=== PATIENT | female | born 1955 | race Caucasian/White ===

== ENCOUNTER 2016-12-08 14:30 | Emergency (ER) | payer SELFPAY ==
[2016-12-08] MEDS ORDERED: ASPIRIN 81 MG (BABY) CHEWABLE TABLET PO ONE (14:50)
[2016-12-08] MEDS ORDERED: Sodium Chloride 0.9% 1,000 ML PRIMARY IV ONE (14:50)
[2016-12-08] MEDS ORDERED: NORMAL SALINE 10 ML SYRINGE FLUSH IVP PRN (14:50)
[2016-12-08] MEDS ORDERED: KETOROLAC 30 MG/1 ML VIAL IVP ONE (14:50)
--- NOTE | 2016-12-08 14:53 | EKG ---
[address] [address] Measurements Intervals [place] Rate: 72 P: 43 NE: 131 QRS: 42 QRSD: 77 T: 23 QT: 388 QTc: 412 Interpretive Statements SINUS RHYTHM WITH OCCASIONAL SUPRAVENTRICULAR PREMATURE COMPLEXES No previous ECG available for comparison Electronically Signed On 12-09-16 13:15:39 MST by Nicolas Blakely [email or web address]
[2016-12-08 15:01] LABS: BASOPHILS # (AUTO) 0.04 10*3/UL; BASOPHILS % (AUTO) 0.5 % (0-1); EOSINOPHILS % (AUTO) 1.7 % (0-8); HEMATOCRIT 44.8 % (37.0-47.0); HEMOGLOBIN 15.8 g/dL (12.0-16.0); IMM GRAN % (AUTO) 0.1 % (0-5); IMM GRAN# (AUTO) 0.01 10*3/UL; LYMPHOCYTES # (AUTO) 2.02 10*3/uL; LYMPHOCYTES % (AUTO) 26.6 % (10-50); MEAN CORPUSCULAR HEMOGLOBIN 32.6 PG (27-31); MEAN CORPUSCULAR HGB CONC 35.3 g/dL (33-37); MEAN PLATELET VOLUME 10.1 FL (7.4-12.2); MONOCYTES # (AUTO) 0.72 10*3/UL (0.3-0.8); MONOCYTES % (AUTO) 9.5 % (5-15); NEUTROPHILS # (AUTO) 4.68 10*3/UL; NEUTROPHILS % (AUTO) 61.6 % (50-80); RDW COEFFICIENT OF VARIATION 13.1 % (11.5-14.5); RED BLOOD COUNT 4.84 10^6/uL (4.20-5.40)
--- NOTE | 2016-12-08 15:05 | PDOC ---
Chest Pain HPI - General Chief Complaint: Chest Pain Stated Complaint: CHEST PAIN, DIZZY Date Seen by Provider: 12/08/16 Time Seen by Provider: 14:35 Source: Patient Exam Limitations: POSITIVE: No limitations Treatment Prior to Arrival: REPORTS: None Nurse's Notes Reviewed & Considered: Yes - History of Present Illness Initial Comments: The patient is a 61-year-old female who presents to the emergency department with complaints of left-sided chest pain, left side pain and left hip pain. She is currently incarcerated. She states that for the past 2 days she has had a sharp pain in her left chest that radiates through to her back. She also has some pain in the left flank region. She has continued pain in the left hip after a fall over a month ago. She reports that she did have x-rays at that time that did not reveal any fracture. Her current chest pain is worse with taking a deep breath or coughing. She does report chronic dry cough. She does have a history of smoking. She has been incarcerated for approximately 5 days. She denies any known history of heart disease or blood clots. - Patient Home Medications Home Medications: Home Medications Acetaminophen [Tylenol] 1,000 mg PO Q6H PRN 12/08/16 Aspirin/Acetaminophen/Caffeine [Excedrin Migraine Tablet] 2 tab PO Q6H PRN 12/08 Azithromycin [Zithromax] 250 mg PO DAILY #4 tab 12/08/16 Azithromycin [Zithromax] 250 mg PO DAILY #4 tab 12/08/16 Clonazepam 1 mg PO BID 12/08/16 Cyclobenzaprine HCl 1 tab PO BEDTIME 12/08/16 Omeprazole 20 mg PO BID #30 cap 12/08/16 Omeprazole 20 mg PO BID #30 capsule. 12/08/16 Trazodone HCl 300 mg PO BEDTIME 12/08/16 - Patient Allergies Allergies/Adverse Reactions: Allergies Allergy/AdvReac Type Severity Reaction Status Date / Time egg Allergy RASH Verified 12/08/16 14:53 Sulfa (Sulfonamide Allergy RASH Verified 12/08/16 14:53 Antibiotics) Past Medical History Past Medical History Reviewed: Other (please comment) (She denies hypertension, diabetes, hyperlipidemia. She does have a history of smoking. She also has had previous lung cancer status post removal of the right upper lobe 2 years ago in [place].) ROS - Limitations ROS Limitations: No Limitations Constitution: DENIES: Chills, Fever Cardiovascular: REPORTS: Chest Pain. DENIES: Heart Racing, Heart Palpitations, Blood Pressure Problem, Edema Respiratory: REPORTS: Cough Non Productive, Hurts To Breathe Neurological: REPORTS: Confusion (She reports that she has been groggy for the past couple of days, she does admit that she was just started on clonazepam to help her with anxiety since she was incarcerated) Gastrointestinal: DENIES: Abdominal Pain, Nausea, Vomitting Genitourinary: REPORTS: Denies Symptoms, Flank Pain (Left side) Eyes: REPORTS: Denies Symptoms ENT: REPORTS: Denies Symptoms Skin: DENIES: Rash Chest Pain PE - General Appearance General Appearance: REPORTS: Alert, Cooperative, No Acute Distress - HEENT HEENT: POSITIVE: Head Inspection Nml, Eyes Inspection Nml, Ears Inspection Nml, Pharynx Inspect. Nml, PERRL, EOMI - Neck Neck: REPORTS: Normal Inspection. DENIES: Lymphadenopathy - Respiratory Respiratory: REPORTS: No Respiratory Distress, Breath Sounds Normal - Cardiovascular Cardiovascular: REPORTS: Regular Rate and Rhythm, Heart Sounds Normal - Abdomen Abdomen: Soft: (All Quadrants), Denies Tenderness: (All Quadrants), No Guarding : (All Quadrants), No Rebound: (All Quadrants), No Distention: (All Quadrants) - Skin Skin: REPORTS: Intact, No Rash - Extremities Extremity: Normal ROM: (All Extremities) Additional Extremities Details: Examination of the left hip does reveal extensive soft tissue swelling with palpable hematoma, bruising also noted in this region - Neurological / Psychological Neurological: POSITIVE: Oriented X3, Motor Normal, Sensation Normal Chest Pain Progress - Results Reviewed by me Xrays/CTs/US Reviewed by me: Yes Discussed with Radiologist: Yes Radiology Findings: Chest x-ray shows postsurgical changes in the right chest with no acute findings per radiologist. CT PE protocol is negative for PE, she does have thickening of the bronchial tubes as well as some airspace disease in the left lower lung, etiology is unclear possibly representing recurrent malignant process versus infection. She also has some thickening of the gastric wall. No other acute findings per radiologist. Lab Results Reviewed: Yes Lab Results:: Laboratory Results 12/08/16 12/08/16 Range/Units 14:45 15:45 WBC 7.60 (4.8-10.8) 10^3/uL RBC 4.84 (4.20-5.40) 10^6/uL Hgb 15.8 (12.0-16.0) g/dL Hct 44.8 (37.0-47.0) % MCV 92.6 (81-99) FL MCH 32.6 H (27-31) PG MCHC 35.3 (33-37) g/dL RDW Std Deviation 43.8 (39-50) fL RDW Coeff of Eduin 13.1 (11.5-14.5) % Plt Count 152 (140-350) 10*3/uL MPV 10.1 (7.4-12.2) FL Immature Gran % (Auto) 0.1 (0-5) % Neut % (Auto) 61.6 (50-80) % Lymph % (Auto) 26.6 (10-50) % Gregory % (Auto) 9.5 (5-15) % Eos % (Auto) 1.7 (0-8) % Baso % (Auto) 0.5 (0-1) % Immature Gran # (Auto) 0.01 10*3/UL Neut # (Auto) 4.68 10*3/UL Lymph # (Auto) 2.02 10*3/uL Gregory # (Auto) 0.72 (0.3-0.8) 10*3/UL Eos # (Auto) 0.13 10*3/UL Baso # (Auto) 0.04 10*3/UL WBC Morphology Comment Normal morphology (NORM) Plt Morphology Comment Normal morphology (NORM) RBC Morph Comment Normal morphology (NORM) D-Dimer 0.76 H (0.00-0.59) mg/L Sodium 138 (135-145) meq/L Potassium 3.9 (3.8-5.2) meq/L Chloride 102 (98-112) meq/L Carbon Dioxide 25 (23-33) meq/L Anion Gap 11 (5-20) BUN 15 (7-22) mg/dL Creatinine 0.7 (0.50-1.20) mg/dL Estimated GFR > 60 (>60 ml/min/1.73m(2)) BUN/Creatinine Ratio 21.42 H (6-20) Glucose 107 (78-110) mg/dL Calculated Osmolality 286.0 (267-292) mOsm/kg Calcium 9.7 (8.7-10.7) mg/dL Magnesium 1.8 (1.6-2.4) mg/dL Total Bilirubin 1.3 H (0.3-1.2) mg/dL AST 53 H (8-39) IU/L ALT 47 (9-52) IU/L Alkaline Phosphatase 90 (38-126) IU/L CK-MB (CK-2) 0.46 (0.00-5.00) NG/DL Troponin I < 0.012 (< 0.040) ng/mL Total Protein 7.3 (6.1-8.0) g/dL Albumin 4.2 (3.5-4.8) g/dL Globulin 3.1 (2.50-4.10) g/dL Albumin/Globulin Ratio 1.30 (1.3-2.0) mg/g Amylase 75 (30-110) U/L Lipase 40 (23-300) IU/L Ur Collection Type Clean catch urine Urine Color Yellow Urine Clarity Clear (CLEAR) Urine pH 5.5 (5.0-8.5) Ur Specific [place] 1.010 (1.005-1.030) Urine Protein Negative (NEG) mg/dl Urine Glucose (UA) Negative (NEG) mg/dL Urine Ketones Negative (NEG) Urine Occult Blood Negative (NEG) Urine Nitrate Negative (NEG) Urine Bilirubin Small (NEG) Urine Urobilinogen 1.0 (0.2) EU/dL Ur Leukocyte Esterase Negative (NEG) Ur Culture Indicated? Culture not set EKG Interpreted/Reviewed By Me:: Yes EKG Interpretation:: POSITIVE: Normal Sinus Rhythm, Normal Rate, Normal Intervals, Normal [place], Normal QRS, Normal ST/T - Patient's Progress MDM / ED Course: The patient is a 61-year-old female who presents to the emergency department with left-sided pleuritic chest pain. Her initial EKG does not reveal any acute ST segment or T-wave changes and is a normal sinus rhythm. She was given aspirin per chest pain protocol as well as Toradol 30 mg IV. Lab work was all essentially unremarkable except for a slightly elevated d-dimer. This d-dimer is likely elevated secondary to the hematoma on her left hip however given that she has left-sided pleuritic chest pain I did recommend that the patient undergo CTA to rule out PE. Initially she refused however after further discussion she agreed to have this test done. The CTA was negative for PE. It does show however some inflammatory changes in the bronchial tubes bilaterally in the perihilar regions as well as some airspace disease in the left lower lung. The etiology of this is unclear according to the radiologist he could not rule out recurrent malignant process and recommended follow-up. She does have cough and pleuritic pain. She is a smoker. 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 In addition next CT does show some evidence of gastritis and she was placed on a proton pump inhibitor. She is advised to take Tylenol as needed for pain. In addition some of her increased sleepiness is likely secondary to taking the combination of clonazepam and Flexeril. She will discontinue the Flexeril as she prefers to take the clonazepam. She is advised return to the emergency room if any worsening or change in symptoms. - Consult Counseled: POSITIVE: Patient, RE: Lab Results, RE: Radiology Results, RE: DX, RE : Need for F/U Patient Care Time - Estimated PCT Patient Care Time (In Minutes): 55 Vital Signs - Recent Vital Signs Vital Signs: Vital Signs (Last 8 hours) Temp Pulse Pulse Resp BP Pulse Ox 12/08/16 14:34 72 12/08/16 14:30 96.7 F L 65 17 137/91 92 - VS Reviewed Vital Signs Reviewed: Yes Discharge Clinical Impression: Pleurisy, Gastritis, Bronchitis, Hematoma of left hip Condition: Stable Prescriptions / Orders: Omeprazole 20 mg PO BID #30 cap Omeprazole 20 mg PO BID #30 anahi. Azithromycin [Zithromax] 250 mg PO DAILY #4 tab Azithromycin [Zithromax] 250 mg PO DAILY #4 tab Patient Instructions Given at Discharge: Pleurisy (ED), Gastritis (ED), Acute Bronchitis (ED), Hematoma (ED) Additional Instructions: Your EKG and blood tests did not reveal any evidence of heart problems causing her current chest pain. The CAT scan did not show any evidence of blood clot. There was however evidence of inflammation in the bronchial tubes as well as in the left lower part of the lung. This is likely causing some degree of pleurisy which is inflammation of the lining of the lung causing your sharp left -sided chest pain. This could be caused by infection (bronchitis/pneumonia) however the radiologist could not rule out reoccurrence of lung cancer as a potential cause. He will be treated with antibiotics and should follow-up with an oncologist/coin purse framer for reevaluation. Also on the CAT scan there was evidence of inflammation in the stomach wall likely representing gastritis or ulcer. For treatment of the bronchitis she will be started on Zithromax 500 mg today followed by 250 mg daily for 4 days. For treatment of the gastritis you will be started on omeprazole 20 mg twice a day. Recommend Tylenol as needed for pain. Your increased grogginess is likely secondary to medication. Recommend discontinuation of Flexeril while taking clonazepam. You may continue to use trazodone at night. Return to the emergency room if increased chest pain or shortness of breath, fever, increased abdominal pain, any worsening or change in symptoms. Recommend follow-up with primary care in 3-5 days. Recommend oncology/ pulmonology follow-up regarding the CAT scan findings. Follow Up With: NONE,NONE [Primary Care Provider] -
[2016-12-08 15:06] LABS: AMYLASE 75 U/L (30-110); ASPARTATE AMINO TRANSFERASE 53 IU/L (8-39); BILIRUBIN,TOTAL 1.3 mg/dL (0.3-1.2); BLOOD UREA NITROGEN 15 mg/dL (7-22); BUN/CREATININE RATIO 21.42 (6-20); CALCIUM 9.7 mg/dL (8.7-10.7); CHLORIDE 102 meq/L (98-112); CREATININE 0.7 mg/dL (0.50-1.20); EST GLOMERULAR FILTRATION > 60 (>60 ml/min/1.73m(2)); GLUCOSE 107 mg/dL (78-110); MAGNESIUM 1.8 mg/dL (1.6-2.4); POTASSIUM 3.9 meq/L (3.8-5.2); SODIUM 138 meq/L (135-145); TOTAL PROTEIN 7.3 g/dL (6.1-8.0)
[2016-12-08 15:17] LABS: PLATELET MORPHOLOGY COMMENT NORMAL MORPHOLOGY (NORM)
[2016-12-08 15:21] LABS: CREATINE KINASE MB 0.46 NG/DL (0.00-5.00)
[2016-12-08 15:34] LABS: TROPONIN I < 0.012 ng/mL (< 0.040)
--- NOTE | 2016-12-08 16:17 | DI ---
[facility] CHEST X-RAY, 12/08/2016 1:50 PM : Clinical History: Chest pain. Previous Exam: None at this facility. There is no acute soft tissue or bony abnormality. Heart size is normal. The patient has had a previo us right partial lobectomy with elevation of the right diaphragm and scarring in the right lung base. There is no acute infiltrate or effusion. The right hilum is prominent and this may be secondary to previous surgery, but a right hilar mass cannot be excluded. There are no pulmonary nodules. Readin. There is no acute infiltrate or effusion. The patient is status post partial right lobectomy duri ng in the right lung base. 2. There is prominence of the right hilum on this AP projection. This may be secondary to surgery bu t a right hilar mass cannot be excluded.
[2016-12-08 16:29] LABS: CLARITY,URINE CLEAR (CLEAR); GLUCOSE, URINE (UA) NEGATIVE (NEG); NITRATE,URINE NEGATIVE (NEG); PH,URINE 5.5 (5.0-8.5); PROTEIN,URINE NEGATIVE (NEG); URINE SAMPLE TYPE CLEAN CATCH URINE
[2016-12-08 16:30] LABS: BILIRUBIN,URINE SMALL (NEG); LEUKOCYTE ESTERASE ,URINE NEGATIVE (NEG); OCCULT BLOOD,URINE NEGATIVE (NEG)
[2016-12-08 16:37] VITALS: RESP 17; TEMP 96.7
--- NOTE | 2016-12-08 16:55 | DI ---
HISTORY: Left-sided pleuritic chest pain. Elevated D-dimer. TECHNIQUE: Contiguous axial images of the chest were obtained and submitted for interpretation. FINDINGS: There is no evidence of an acute pulmonary embolism. The thoracic aorta is ectatic. Ther e are calcified and non-calcified plaques demonstrated. There are possible prior surgical changes in the right hilar region. There is evidence of chronic vo lume loss in the right middle lobe. Abnormal bronchial wall thickening is seen in the bilateral antonella r regions. Patchy airspace disease is seen in the left lower lobe. Thickening of the gastric wall as well as esophageal wall thickening are noted. Heterogeneous breast tissue is noted. IMPRESSION: 1. No CT evidence of acute pulmonary emboli. 2. Chronic right middle lobe volume loss with abnormal bronchial wall thickening in the bilateral hil ar regions and patchy left lower lobe airspace disease. Perilymphatic spread of disease cannot be ex cluded. Please correlate with history. 3. Gastric wall and esophageal wall thickening. 4. Heterogeneous breast tissue density. Recommend mammogram as indicated. NOTIFICATION: The above findings were phoned to Salvador in the ER Department on 12/08/2016 at 7:08pm [email or web address] Vazquez
[2016-12-08] MEDS ORDERED: PANTOPRAZOLE 40 MG TABLET PO ONE (17:12)
[2016-12-08] MEDS ORDERED: AZITHROMYCIN 250 MG TABLET PO ONE (17:12)
== END 2016-12-08 17:45 ==
LOC: ER 14:30
DX: J20.9 Acute bronchitis, unspecified (principal); R09.1 Pleurisy; K29.70 Gastritis, unspecified, without bleeding; R05 Cough; S70.02XA Contusion of left hip, initial encounter; M25.552 Pain in left hip; Z90.2 Acquired absence of lung [part of]
CPT/HCPCS: 71010; 71275; 80053; 81003; 82150; 82553; 83690; 83735; 84484; 85025; 85379; 93005; 93010; 96374; 99284 ×2; J1885; J7030